=== PATIENT | male | born 1995 | race African-American/Black ===

== ENCOUNTER 2017-02-18 21:07 | Emergency (ER) | payer MEDICAID, OTHER ==
[~2017-02-18 21:07] MED LIST: Z.0.NO CURRENT MEDS
[2017-02-18 21:09] VITALS: BP 135/77; PULSE 88; RESP 16; TEMP 97.3; O2SAT 100
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
[2017-02-18] MEDS ORDERED: IBUPROFEN 800 MG TAB PO ONE (21:45)
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
[2017-02-18] MEDS ORDERED: IBUP800T23 PO (22:12)
== END 2017-02-18 22:29 | disposition home or self-care (01) ==
LOC: NEPD 21:07
DX: S39.012A Strain of muscle, fascia and tendon of lower back, initial encounter (principal); S80.12XA Contusion of left lower leg, initial encounter; V23.5XXA Motorcycle passenger injured in collision with car, pick-up truck or van in traffic accident, initial encounter; Y93.9 Activity, unspecified; Y92.9 Unspecified place or not applicable; Y99.9 Unspecified external cause status
CPT/HCPCS: 72072; 73590; 99284